=== PATIENT | male | born 1945 | race Caucasian/White ===

== ENCOUNTER 2024-04-05 14:20 | Emergency (ER) | payer OTHER ==
[2024-04-05 15:05] VITALS: BP 141/72; PULSE 57; RESP 16; TEMP 97.3; BMI 22.9
[2024-04-05 15:45] LABS: HEMATOCRIT 43.4 % (35.4-49); HEMOGLOBIN 14.4 G/dL (11.7-16.9); MCH 30.3 pg (25.7-33.7); MCHC 33.3 g/dl (32.0-35.9); MEAN CELL VOLUME 90.9 fl (80-96); MEAN PLT VOLUME 7.9 fl (7.5-11.1); PLATELET COUNT 262.9 10^3/uL (134-434); RBC 4.77 10^6/uL (4.00-5.60); RDW 13.5 % (11.9-15.9); WHITE BLOOD COUNT 8.7 10^3/uL (4.0-10.8)
[2024-04-05 15:51] LABS: ALBUMIN 4.3 g/dl (3.4-5.0); ALK PHOS 58 U/L (45-117); ANION GAP 7 mmol/L (4-13); BILIRUBIN,TOTAL 0.9 mg/dl (0.2-1); CALCIUM 9.3 mg/dl (8.5-10.1); CHLORIDE 103 mmol/L (98-107); CO2 27 mmol/L (21-32); CREATININE 0.7 mg/dl (0.6-1.3); GLUCOSE,RANDOM 126 mg/dl (74-106); POTASSIUM 3.8 mmol/L (3.5-5.1); SGOT/AST 11 U/L (15-37); SODIUM 137 mmol/L (136-145); TOT PROT 7.1 g/dl (6.4-8.2); URINE MUCUS FEW
[2024-04-05] MEDS ORDERED: ONDANSETRON 4 MG/2 ML VIAL ONE (15:54)
[2024-04-05] MEDS: ONDANSETRON 4 MG/2 ML VIAL IVPUSH ONE (16:00)
[2024-04-05] MEDS: FAMOTIDINE 20 MG/50 ML IVPB 20 MG in PREMIX 50 IVPB ONE (16:00)
[2024-04-05] MEDS: SODIUM CHLORIDE 1,000 ML IV ONE (16:00)
[2024-04-05 16:03] LABS: PLATELET ESTIMATE ADEQUATE
[2024-04-05 16:22] LABS: SGPT/ALT 2 U/L (7-52)
== END 2024-04-05 17:47 | disposition home or self-care (01) ==
LOC: FER 14:20
PROC: 3E033GC Introduction of Other Therapeutic Substance into Peripheral Vein, Percutaneous Approach (ICD-10-PCS; principal; 2024-04-05)
PROC: 3E033GC Introduction of Other Therapeutic Substance into Peripheral Vein, Percutaneous Approach (ICD-10-PCS; 2024-04-05)
DX: R11.2 Nausea with vomiting, unspecified (principal); Z20.822 Contact with and (suspected) exposure to COVID-19
CPT/HCPCS: 0241U-QW; 36415; 71045-TC-FY; 80053; 81003; 81015; 83690; 84484; 85027; 93005; 99285-25